=== PATIENT | male | born 1945 | race Caucasian/White ===

== ENCOUNTER → 2017-10-09 12:43 | Outpatient (CLI) | payer MEDICARE, SELFPAY ==
[2017-10-09 15:06] LABS: BUN 13 mg/dL (7-18); CREATININE 0.85 mg/dL (0.70-1.30)
== END ==
PROVIDERS: PCP Emergency Medicine; Visit Provider Neurological Surgery
DX: E78.00 Pure hypercholesterolemia, unspecified (principal); M79.606 Pain in leg, unspecified; M54.17 Radiculopathy, lumbosacral region; M54.9 Dorsalgia, unspecified
CPT/HCPCS: 84520; 82565

== ENCOUNTER → 2017-10-12 01:43 | Outpatient (CLI) | payer MEDICARE, SELFPAY ==
[2017-10-12] MEDS: Gadoterate meglumine 20 ML VIAL 15 ML IVP (15:39)
--- NOTE | 2017-10-12 15:50 | DI.REPORT_ITS ---
SYMPTOM/DIAGNOSIS: SEVERE LT SIDED L 5 SYMPTOMS, S/P L4-5 FUSION, M54.9, BACK PAIN, LEG PAIN, M79.606, RADICULOPATHY, M54.17,Z98.1 LUMBAR SPINE MRI: Pre and post contrast examination was performed according to protocol. Comparison examination is 05/23/17. Since the prior examination, the patient has undergone lumbar decompression with segmented instrumented fusion at L 4-5. There is artifact from the patient's orthopedic hardware noted. FINDINGS: The conus medullaris has a normal appearance and location. At L 5-S 1, there is disc desiccation, endplate degenerative osteophytes and endplate degenerative signal changes present. No significant central spinal canal stenosis is noted. There is bilateral moderate neural foraminal stenosis present. At L 4-5, there is disc desiccation, endplate osteophytes and endplate degenerative signal changes present. No significant central spinal canal stenosis is seen. There is again seen moderately severe right and moderate left neural foraminal stenosis. At L 3-4, there is disc desiccation, endplate degenerative signal changes and osteophytes present. There is a mild diffuse disc bulge. No significant central spinal canal stenosis is present. There is moderate right and moderately severe left neural foraminal stenosis present. At L 2-3, there is disc desiccation, endplate degenerative signal changes and osteophytes present. There does appear to be a diffuse disc bulge. There are hypertrophic changes of the facets and ligament flavum. Mild narrowing of the central spinal canal is noted. There is mild right and moderately severe left neural foraminal stenosis. At L 1-2, there is disc desiccation, endplate degenerative signal changes and osteophytes present. There is no significant narrowing of the central spinal canal. Moderate right and mild left neural foraminal stenosis is present. Following contrast administration, no significant enhancement is appreciated. IMPRESSION: 1. Interval post surgical changes in the lumbar spine with instrumented spinal fusion at L 4 and L 5. 2. Multi level degenerative changes throughout the lumbar spine resulting in multi level neural foraminal stenosis as described above.
== END ==
PROVIDERS: PCP Emergency Medicine; Visit Provider Neurological Surgery
DX: M54.17 Radiculopathy, lumbosacral region (principal); M79.606 Pain in leg, unspecified; M51.37 Other intervertebral disc degeneration, lumbosacral region; Z98.1 Arthrodesis status
CPT/HCPCS: 72158

== ENCOUNTER 2018-03-30 03:04 | Outpatient (CLI) | payer MEDICARE, SELFPAY ==
[2018-03-30 12:13] LABS: Cholesterol 211 mg/dL (50-200); HDL Cholesterol 70 mg/dL (40-60); LDL CHOLESTEROL 127 mg/dL (<100); TSH 1.52 uIU/mL (0.358-3.74); Triglyceride 37 mg/dL (30-150)
[2018-04-02 09:32] LABS: PSA, Screening <0.1 ng/ml (0-6.5)
== END 2018-03-30 03:24 ==
PROVIDERS: PCP Emergency Medicine; Visit Provider Emergency Medicine
DX: E78.5 Hyperlipidemia, unspecified (principal); E03.9 Hypothyroidism, unspecified; C61 Malignant neoplasm of prostate; Z12.5 Encounter for screening for malignant neoplasm of prostate
CPT/HCPCS: 36415; 80061; 83721; 84153; 84443

== ENCOUNTER → 2018-04-27 10:50 | Outpatient (BNVA) | payer MEDICARE, SELFPAY | PROVIDERS: PCP Emergency Medicine; Referring Provider Emergency Medicine; Visit Provider Physical Therapy Assistant | DX: Z12.11 Encounter for screening for malignant neoplasm of colon (principal); R19.7 Diarrhea, unspecified; B96.6 Bacteroides fragilis [B. fragilis] as the cause of diseases classified elsewhere ==

== ENCOUNTER 2018-04-30 10:05 | Outpatient (REF) | payer MEDICARE, SELFPAY ==
[2018-05-01 11:48] LABS: Campylobacter PCR SEE COMMENTS; Salmonella PCR SEE COMMENTS; Shiga Toxin PCR SEE COMMENTS; Shigella/Enteroinvasive Ecoli SEE COMMENTS
== END 2018-04-30 10:25 ==
LOC: LBN 10:05
PROVIDERS: PCP Emergency Medicine; Visit Provider Physical Therapy Assistant
DX: R19.7 Diarrhea, unspecified (principal)
CPT/HCPCS: 87329; 87505; 87177; 87324

== ENCOUNTER 2018-06-05 06:17 | Day surgery (SDC) | payer MEDICARE, SELFPAY ==
[2018-06-05 06:30] VITALS: BP 138/77; PULSE 69; RESP 18; TEMP 35.5; O2SAT 98
--- NOTE | 2018-06-05 06:46 | W.COLOREPORT ---
Date of service: 06/05/18 Time of Service: 07:24 Colonoscopy Report Date of procedure: 06/05/18 Pre-op diagnosis general: Colon Cancer screening Post-op diagnosis procedure note: other (colorectal polyps) Procedure: Colonoscopy with polypectomy by cold forceps Surgeon: Gisele Rosas Anesthesia proc note operative: other (General/ ASA 2 / Bernardo Rosa CRNA) Estimated blood loss (mL): 4 Pathology: other (Transverse colon polyp and descending colon polyp X2) Complications: None Disposition: same day Indications: Mr. Sanchez is a pleasant 72 year old male who was seen in the office for a screening colonoscopy. His last Colonoscopy was in 2007 and was normal. He has no family history of colon cancer. Risks, benefits and complications have been reviewed. Complications include but are not limited to bleeding, pain, perforation, missed small lesion/polyp, sore throat, aspiration and adverse reaction to the medications. Questions were entertained and answered to their satisfaction and they wished to proceed. No guarantees were given or implied. Prep: Miralax/Dulcolax Procedure Start Time: :24 Procedure End Time: :51 Retraction Time: Findings: 3 small sessile polyps Procedure Description: After informed consent was obtained the patient was taken to the procedure room and placed in a left decubitous position. Monitors were applied and a time out was done. The patients name, date of , procedure, allergies to medications and metal in their body was reviewed. The patient was then sedated. Once sedated and comfortable a rectal exam was done. External exam was normal. Internal exam revealed a slight relaxed sphincter tone and no palpable masses. The scope was then introduced and retro-flexed. No internal hemorrhoids were identified. There were no masses and no polyps. No radiation proctitis was noted. The scope was then advanced to the cecum without difficulty. The TI and appendiceal orifice were identified. The prep was adequate. The scope was then slowly retracted over 23 minutes back into the rectum. Polyps were removed with cold forceps x1 in the transverse colon and x 2 in the descending colon. The scope was removed and the patient was woken up and taken back to Same day surgery in stable condition. The patient tolerated the procedure well and there were no immediate complications. Follow up: The patient should follow up in 3,5 and 10 years depending on final pathology or unless they develop changes in bowel habits or other new gastrointestinal complaints.
--- NOTE | 2018-06-05 06:50 | PDOC.DSDIS_ITS ---
Discharge Plan Disposition Patient Disposition: HOME Condition: Good Discharge Details Reason For Visit: Colon Cancer Screening Attending Provider: Gisele Rosas Primary Care Provider: Rashid Metzger Home Meds and New Rx's Prescriptions: Continued Metamucil 3.4 gram/5.4 gram powder 1 tbs PO DAILY PRNRF: 0 loperamide [Imodium A-D] 2 mg capsule 2 mg PO Q1-4H PRNRF: 0 CENTRUM SILVER TABLET 1 EACH tablet 1 ea PO DAILY RF: 0 penis clamp 1 unit UR Qty: 1 RF: 0 aspirin [Aspir-Low] 81 MG tablet,delayed release (DR/EC) 81 mg PO DAILY RF: 0 pravastatin [Pravachol] 20 MG tablet 1 tab PO DAILY Qty: 90 RF: 4 sertraline [Zoloft] 100 mg tablet 150 mg PO DAILY Qty: 145 RF: 3 ibuprofen 200 mg capsule 400 mg PO DAILY 10 Days Qty: 60 RF: 0 Discontinued bisacodyl [Dulcolax (bisacodyl)] 5 mg tablet,delayed release (DR/EC) 5 mg PO ONCE Qty: 4 RF: 0 polyethylene glycol 3350 17 gram/dose powder 238 g PO ONCE Qty: 238 RF: 0 Discharge Instructions Instructions: Colonoscopy (DC), Colorectal Polyps (DC) Additional Instructions: Findings: 3 small polyps Follow up: depends on final pathology Please call if you develop: fevers >101.5 Nausea or Vomiting Abdominal pain that is not transient DAY SURGERY UNIT POST COLONOSCOPY INSTRUCTIONS 1. Because there will be medication in your system for the next 24 hours, you may feel a little sleepy. Your coordination will be affected. Therefore: a. Do not drive or operate dangerous equipment for 24 hours. b. Do not drink alcohol beverages for 24 hours (not even beer). c. Plan to go home and rest for the day. 2. Generally there are no restrictions on your activity after a day or so has gone by, but you may feel a bit fatigued for a few days. 3 After you arrive home you may have a light meal and return to a normal diet as you can tolerate it without feeling sick to your stomach. 4. After surgery, you may feel pain or discomfort. This should be only t ransient, but if it persists please contact your doctor. 5. If there are any questions regarding the findings of your procedure, please feel free to contact your doctor. 6. If you are unable to contact your doctor with a problem, contact the hospital at [phone]. 7. Continue all your regular medications unless directed otherwise. I understand the above instructions and have no questions. Signature of Patient or Responsible Adult Escort Date/Time Name of Responsible Adult Escort Signature of Nurse Date/Time Stand Alone Forms: Nazanin Alexandre (IKEU) Activity:: Activity as Tolerated Diet:: As Tolerated Discharge Orders Discharge Orders: Discharge Order (Routine); Ordered 06/05/18 Ordered By: Gisele Rosas DS: Diagnosis Discharge Diagnosis (1) S/P colonoscopy: Status: Acute (2) Colorectal polyp detected on colonoscopy: Status: Acute
--- NOTE | 2018-06-05 06:51 | W.PM.HP.N ---
Date of service: 06/05/18 Time of Service: 06:51 Assessment and Plan (1) Encounter for screening colonoscopy for [id number] patient: Current visit: Yes Status: Acute P\\ Colonoscopy under sedated Risks, benefits and complications have been reviewed. Complications include but are not limited to bleeding, pain, perforation, missed small lesion/polyp, sore throat, aspiration and adverse reaction to the medications. Questions were entertained and answered to their satisfaction and they wished to proceed. No guarantees were given or implied. History of Present Illness Narrative: 72 y/o male with history of prostatectomy and radiation for prostate cancer in 2012, depression and hyperlipidema presents for colonoscopy screening pre-op. His last screening was in 2007, which was unremarkable. He denies a family history of colon cancer. He reports changes in his bowel habits over the past year he has had multiple loose BMs (5+) a day, which at times has been associated with fecal incontinence. He reports feeling the urge to have BMs. He has been trying to use metamucil and immodium intermittently, with minimal change. Denies bloody or black tarry stools, abdominal pain or constipation. He denies constitutional symptoms. Denies use of marijuana or any other recreational or illegal drugs. He reports following a healthy diet, with fruits and vegetables with most meals. He denies chest pain, palpitations, dyspnea or dyspnea with exertion. He denies prior history or family history of adverse reactions or complications with anesthesia. 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 He was treated with a 10 day course of Metronidazole 500 mg TID. His diarrhea has resolved at this time. Review of Systems Constitutional Denies fever(s) and Denies weight loss Cardiovascular Denies chest pain, Denies palpitations and Denies dyspnea Respiratory Denies cough and Denies dyspnea Endocrine Denies palpitations [facility] Medical History Spinal stenosis (Acute) Sciatica (Acute) Primary malignant neoplasm of prostate (Acute) Hyperlipidemia (Acute) Depressive disorder (Acute) Hyperlipidemia (Chronic) Anxiety disorder (Chronic) History of incontinence of feces (Acute) History of urinary incontinence (Acute) DDD (degenerative disc disease), lumbar (Resolved) Sciatica, unspecified side (Resolved) Surgical History S/P colonoscopy (Acute ~06/05/18) Colonoscopy - MAC Prostatectomy Repair of inguinal hernia SPINE SURGERY Family History Mother Essential hypertension Heart disease Father Heart disease Hyperlipidemia Myocardial infarction Sister Cancer Brother Essential hypertension Heart disease Hyperlipidemia Prostate cancer Depression Maternal Grandfather Heart disease Cancer Paternal Grandfather Heart disease Maternal Grandmother Cancer Paternal Grandmother Stroke Daughter OCD (obsessive compulsive disorder) Daughter Skin cancer Social History Smoking/Tobacco Use Status: Never Second Hand Exposure: No Alcohol Intake: former Drug use: Never Substance use type: does not use Caregiver/Support person: No Household members: spouse and other Details: 2 Housing: house Pets and animals: No Sexually active: No Do you think of yourself as: straight/heterosexual Current gender identity: male What is your relationship status?: How often do you talk on the phone with friends or family?: three or more times per week How often do you get together with friends or relatives?: three or more times per week How often do you attend buddhist or muslim services?: 4 or more times per year Do you belong to any clubs or organized social groups?: no Panel score (0-1 are the most socially isolated patients): 3 What type of physical activity do you participate in: none Duration: 15-30 minutes/day Frequency: 3-4 times per week Chrystal/Hindu: Jehovah'S Witness Special chrystal needs: No Do you feel safe at home: Yes Do you feel safe in your relationship?: Yes Meds Home Medications Medication Instructions Recorded Confirmed Type Centrum Silver Tablet 1 ea PO DAILY 08/09/12 06/05/18 History Penis Clamp 1 unit UR #1 u 11/06/13 04/27/18 Clinic aspirin [Aspir-Low] 81 mg PO DAILY tab-cap 03/24/15 06/05/18 History pravastatin [Pravachol] 1 tab PO DAILY #90 tab 10/11/17 06/05/18 Rx sertraline 100 mg tablet 150 mg PO DAILY #145 tab-cap 01/12/18 06/05/18 Rx bisacodyl 5 mg tablet,delayed 5 mg PO ONCE #4 tab 04/27/18 06/05/18 Rx release ibuprofen 200 mg capsule 400 mg PO DAILY 10 Days #60 cap 04/27/18 06/05/18 History loperamide 2 mg capsule 2 mg PO Q1-4H PRN 04/27/18 06/05/18 History polyethylene glycol 3350 17 238 g PO ONCE #238 gm 04/27/18 06/05/18 Rx gram/dose oral powder psyllium husk 3.4 gram/5.4 gram 1 tbs PO DAILY PRN 04/27/18 06/05/18 History oral powder Allergies Allergy/AdvReac Type Severity Reaction Status Date / Time latex Allergy Intermediate rash on Verified 06/05/18 06:39 hands sildenafil AdvReac Severe HEADACHE Verified 06/05/18 06:39 atorvastatin AdvReac Unknown MYALGIAS Verified 06/05/18 06:39 Exam HENMT Head: normocephalic and atraumatic Resp Effort & Inspection: normal respiratory effort Auscultation: clear to auscultation bilaterally Cardio Rate: regular rate Rhythm: regular rhythm Heart Sounds: no gallops, no murmurs and no rubs Results Last Vital Signs Temp 95.9 F L 06/05/18 06:30 Pulse 69 06/05/18 06:30 Resp 18 06/05/18 06:30 BP 138/77 06/05/18 06:30 Pulse Ox 98 06/05/18 06:30
[2018-06-05] MEDS: Lactated Ringers 1,000 ML 80 ML IV (06:56)
--- NOTE | 2018-06-05 07:37 | BOWEL_PTH ---
PATIENT: Basil Sanchez LOC: [facility] U#:[id number] AGE/SX: 72/M ROOM: RE06/05/[address]: Gisele Rosas MD : 1945 BED: DIS: 06/05/2018 SPEC #: [id number] RECD: 06/05/18 12:13 STATUS: EHSAN REQ #: [id number] SHAHAB: 06/05/18 07:[address]: Gisele Rosas DEPT: Surgical Specimen RECD BY: Carlie Zamorano ENTERED: 06/05/18 12:13 SP TYPE: Bowel OTHR DR: Rashid Metzger DO Tissues: 1 - BIOPSY BOWEL 2 - BIOPSY BOWEL Procedures: GROSS AND MICRO LEVEL 4 Comments: [id number]
[2018-06-05 08:45] VITALS: BP 126/75; PULSE 51; RESP 16; TEMP 35.8; O2SAT 99
== END 2018-06-05 09:06 | disposition home or self-care (01) ==
PROVIDERS: PCP Emergency Medicine; Visit Provider Surgery
PROC: 0DJD8ZZ Inspection of Lower Intestinal Tract, Via Natural or Artificial Opening Endoscopic (ICD-10-PCS; CPT 45378; principal; 2018-06-05 07:30)
DX: Z12.11 Encounter for screening for malignant neoplasm of colon (principal); D12.3 Benign neoplasm of transverse colon; K63.5 Polyp of colon; Z85.46 Personal history of malignant neoplasm of prostate
CPT/HCPCS: 45380; 88305; NC

== ENCOUNTER 2018-10-02 14:59 | Outpatient (REF) | payer MEDICARE, SELFPAY | END 2018-10-02 15:19 | LOC: LBN 14:59 | PROVIDERS: PCP Emergency Medicine; Visit Provider Internal Medicine Gastroenterology | DX: R15.1 Fecal smearing (principal); K52.89 Other specified noninfective gastroenteritis and colitis | CPT/HCPCS: 87329; 82710; 83630; 87177; 87324 ==

== ENCOUNTER 2018-10-03 10:17 | Outpatient (REF) | payer MEDICARE, SELFPAY | END 2018-10-03 10:37 | LOC: LBN 10:17 | PROVIDERS: PCP Emergency Medicine; Visit Provider Emergency Medicine | DX: R15.1 Fecal smearing (principal); K52.9 Noninfective gastroenteritis and colitis, unspecified | CPT/HCPCS: 87329; 87177 ==

== ENCOUNTER 2018-10-04 08:26 | Outpatient (REF) | payer MEDICARE, SELFPAY | END 2018-10-04 08:46 | LOC: LBN 08:26 | PROVIDERS: PCP Emergency Medicine; Visit Provider Emergency Medicine | DX: R15.1 Fecal smearing (principal); K52.9 Noninfective gastroenteritis and colitis, unspecified | CPT/HCPCS: 87177 ==

== ENCOUNTER 2019-04-08 01:43 | Outpatient (CLI) | payer MEDICARE, SELFPAY ==
[2019-04-08 07:28] LABS: Abs Immature Grans 0.01 k/cumm (0.0-0.09); Absolute Basophil Count 0.04 k/cumm (0.0-0.2); Absolute Eosinophil Count 0.14 k/cumm (0.0-0.7); Absolute Lymphocyte Count 1.22 k/cumm (1.2-3.4); Absolute Monocyte Count 0.39 k/cumm (0.11-0.7); Absolute Neutrophil Count 3.15 k/cumm (1.2-6.7); Basophils % 0.8; Eosinophils % 2.8; HCT 44.6 % (40.0-50.0); Immature Grans % 0.2 %; Lymphocytes % 24.6; Mean Corp. HGB Concentration 33.6 g/dL (32.0-36.0); Mean Corpuscular Hemoglobin 30.2 pg (27.0-33.0); Mean Corpuscular Volume 89.7 fL (80-95); Mean Platelet Volume 9.7 fL (8.0-11.0); Monocytes % 7.9; Neutrophils % 63.7; Platelet Count 212 x1000/uL (130-400); RBC 4.97 m/cumm (4.50-6.00); RBC Distribution Width 12.9 % (11.8-14.1); White Blood Cell Count 4.95 k/cumm (4.4-10.8)
[2019-04-08 09:05] LABS: ALT 25 U/L (16-63); AST 22 U/L (15-37); Albumin 4.1 g/dL (3.4-5.0); Alkaline Phosphatase 119 U/L (46-116); Anion Gap 6.2 mmol/L (3-11); BUN 12 mg/dL (7-18); Bilirubin, Total 0.6 mg/dL (0.2-1.0); CO2 29.8 mmol/L (21.0-32.0); CREATININE 0.91 mg/dL (0.70-1.30); Calcium 8.9 mg/dL (8.5-10.1); Chloride 108 mmol/L (98-107); Glucose 99 mg/dL (74-106); Potassium 4.4 mmol/L (3.5-5.1); Sodium 144 mmol/L (136-145); Total Protein 6.7 g/dL (6.4-8.2)
[2019-04-09 17:43] LABS: PSA, Diagnostic <0.1 ng/mL (0.0-6.5)
== END 2019-04-08 02:03 ==
PROVIDERS: PCP Family Medicine; Visit Provider Family Medicine
DX: D64.9 Anemia, unspecified (principal); C61 Malignant neoplasm of prostate; R25.1 Tremor, unspecified
CPT/HCPCS: 36415; 80053; 84153; 85025

== ENCOUNTER 2019-04-18 11:57 | Outpatient (CLI) | payer MEDICARE, SELFPAY ==
[2019-04-18 14:34] LABS: Bilirubin Negative (Negative); Blood Moderate (Negative); Clarity Clear (Clear); Glucose Negative (Negative); Ketones Negative (Negative); Leukocyte Esterase Small (Negative); Nitrite Negative (Negative); Specific Gravity >= 1.030 (1.005-1.025); Urobilinogen 0.2 EU/dL (Up TO 0.2)
[2019-04-18 15:50] LABS: RBC 0-2 HPF (0-2); WBC >50 HPF (0-5)
[2019-04-18 15:51] LABS: Bacteria Few HPF (Negative); Epithelial Cells Few HPF (Negative)
[2019-04-18 15:52] LABS: C & S Indicated? Yes
== END 2019-04-18 12:17 ==
PROVIDERS: PCP Family Medicine; Visit Provider Family Medicine
DX: R31.9 Hematuria, unspecified (principal)
CPT/HCPCS: 36415; 87077; 81003; 81015; 87086; 87186

== ENCOUNTER 2019-04-25 01:28 | Outpatient (CLI) | payer MEDICARE, SELFPAY ==
--- NOTE | 2019-04-25 07:46 | DI.CT_ITS ---
EXAM: CT HEAD WO CLINICAL HISTORY: lightheaded with some headaches,R42. TECHNIQUE: Imaging Protocol: Axial computed tomography images with coronal and sagittal reformatted images were created and reviewed COMPARISON: No exams were available for comparison FINDINGS: Ventricles and Extra axial spaces: Normal in size and morphology for the patient's age. Hemorrhage: None. Cerebral parenchyma: Normal. Midline shift: None. Brainstem/Cerebellum: Normal. Calvarium: Normal. Visualized Paranasal sinuses/Mastoids: Clear. Soft Tisues: Unremarkable. IMPRESSION: Normal CT of the head. RADIATION DOSE DELIVERED: DATA REPOSITORY: All CT scans at this facility are submitted to the National Radiology Data Registry (NRDR) Dose Index Registry (DIR) with the [employer] (ACR). RADIATION OPTIMIZATION: All CT scans at this facility use at least one of these dose optimization te chniques: automated exposure control; mA and/or kV adjustment per patient size (includes targeted exa ms where dose is matched to clinical indication); or iterative reconstruction.
== END 2019-04-25 01:48 ==
PROVIDERS: PCP Family Medicine; Visit Provider Family Medicine
DX: R42 Dizziness and giddiness (principal); R51 Headache
CPT/HCPCS: 70450

== ENCOUNTER 2019-04-26 11:05 | Outpatient (CLI) | payer MEDICARE, SELFPAY ==
[2019-04-26 12:39] LABS: Abs Immature Grans 0.01 k/cumm (0.0-0.09); Absolute Basophil Count 0.06 k/cumm (0.0-0.2); Absolute Eosinophil Count 0.13 k/cumm (0.0-0.7); Absolute Lymphocyte Count 1.21 k/cumm (1.2-3.4); Absolute Monocyte Count 0.46 k/cumm (0.11-0.7); Absolute Neutrophil Count 3.67 k/cumm (1.2-6.7); Basophils % 1.1; Eosinophils % 2.3; HCT 44.2 % (40.0-50.0); HGB 14.8 g/dL (13.5-17.5); Immature Grans % 0.2 %; Lymphocytes % 21.8; Mean Corp. HGB Concentration 33.5 g/dL (32.0-36.0); Mean Corpuscular Hemoglobin 29.9 pg (27.0-33.0); Mean Corpuscular Volume 89.3 fL (80-95); Mean Platelet Volume 10.3 fL (8.0-11.0); Monocytes % 8.3; Neutrophils % 66.3; Platelet Count 245 x1000/uL (130-400); RBC 4.95 m/cumm (4.50-6.00); RBC Distribution Width 12.9 % (11.8-14.1); White Blood Cell Count 5.54 k/cumm (4.4-10.8)
[2019-04-26 12:57] LABS: ALT 29 U/L (16-63); AST 23 U/L (15-37); Albumin 4.1 g/dL (3.4-5.0); Alkaline Phosphatase 124 U/L (46-116); Anion Gap 9.1 mmol/L (3-11); BUN 19 mg/dL (7-18); Bilirubin, Total 0.6 mg/dL (0.2-1.0); CO2 26.9 mmol/L (21.0-32.0); CREATININE 1.06 mg/dL (0.70-1.30); Chloride 104 mmol/L (98-107); Glucose 104 mg/dL (74-106); Potassium 4.5 mmol/L (3.5-5.1); Sodium 140 mmol/L (136-145); Total Protein 7.1 g/dL (6.4-8.2)
[2019-04-27 14:25] LABS: C-Reactive Protein 0.12 mg/dL (0.0-0.3)
== END 2019-04-26 11:25 ==
PROVIDERS: PCP Family Medicine; Visit Provider Family Medicine
DX: E03.9 Hypothyroidism, unspecified (principal); D64.9 Anemia, unspecified; R42 Dizziness and giddiness
CPT/HCPCS: 36415; 80053; 84443; 85025; 86140

== ENCOUNTER 2019-04-26 11:38 | Outpatient (CLI) | payer MEDICARE, SELFPAY ==
--- NOTE | 2019-04-26 13:21 | DI.CT_ITS ---
EXAM: CT RENAL COLIC WO CLINICAL HISTORY: left low back pain, ? KIDNEY STONE, M54.9. TECHNIQUE: Imaging Protocol: Axial computed tomography images with coronal and sagittal reformatted images were created and reviewed. COMPARISON: No exams were available for comparison FINDINGS: ABDOMEN: Lung Bases: Normal where visualized. Liver: Normal density. No measurable mass. Multiple hepatic cysts. The largest measures 6.4 cm. Gallbladder and biliary tract: No radiodense calculus or dilation. Pancreas: Normal density, no abnormal calcifications or inflammatory process. Spleen: Normal. Kidneys: Normal size, contour and axis. Nonobstructing left renal stone. No ureterolithiasis. No hy dronephrosis. Right renal cysts. Adrenal glands: No masses seen. Lymph nodes: Within normal limits. Abdominal Aorta: Abdominal portion non-dilated. Atherosclerosis. PELVIS: Bladder: Symmetric distention, no gross wall thickening. Bowel: No obstruction or bowel wall thickening. Diverticulosis but no evidence of acute diverticuliti s. No evidence of an acute appendicitis. Peritoneal cavity: No ascites, collection or mesenteric inflammatory response. Reproductive organs: Prostate gland not visualized. Please correlate with patient's surgical history . Bones: Degenerative changes in the lumbar spine. Postsurgical laminectomies in the lower lumbar spin e. IMPRESSION: 1. Left nephrolithiasis. 2. No evidence of obstructive uropathy. 3. Hepatic and renal cysts. 4. No evidence of an acute abdominal or pelvic process. DATA REPOSITORY: All CT scans at this facility are submitted to the National Radiology Data Registry (NRDR) Dose Index Registry (DIR) with the [employer] (ACR). RADIATION OPTIMIZATION: All CT scans at this facility use at least one of these dose optimization te chniques: automated exposure control; mA and/or kV adjustment per patient size (includes targeted exa ms where dose is matched to clinical indication); or iterative reconstruction.
== END 2019-04-26 11:58 ==
PROVIDERS: PCP Family Medicine; Visit Provider Family Medicine
DX: M54.5 Low back pain (principal); N20.0 Calculus of kidney; K76.89 Other specified diseases of liver; N28.1 Cyst of kidney, acquired; E03.9 Hypothyroidism, unspecified; R42 Dizziness and giddiness; D64.9 Anemia, unspecified
CPT/HCPCS: 36415; 80053; 74176; 84443; 85025; 86140

== ENCOUNTER 2019-05-01 02:48 | Outpatient (CLI) | payer MEDICARE, SELFPAY ==
[2019-05-01 12:45] LABS: Vitamin B12 569 pg/mL (193-986)
== END 2019-05-01 03:08 ==
PROVIDERS: PCP Family Medicine; Visit Provider Family Medicine
DX: F48.8 Other specified nonpsychotic mental disorders (principal)
CPT/HCPCS: 36415; 82607

== ENCOUNTER 2019-08-09 15:00 | Outpatient (CLI) | payer MEDICARE, SELFPAY ==
--- NOTE | 2019-08-09 12:30 | DI.RAD_ITS ---
EXAM: XR LUMBAR SPINE COMPLETE CLINICAL HISTORY: low back pain,m54.9,dorsalgia TECHNIQUE: COMPARISON: No exams were available for comparison FINDINGS: Five views were obtained. There are Ga rods in place at the L4-5 level on the right and fro m L4-S1 on the left. There is a mild biconvex thoracolumbar scoliosis. Ga rods appear intac t. There is multilevel disc space loss of height consistent with disc degeneration throughout the lynn mbar region. There are very prominent hypertrophic endplate and facet degenerative changes. There i s no gross spondylolysis or spondylolisthesis. IMPRESSION: Severe DJD, Ga rods in place from L4-S1, no evidence of fracture.
== END 2019-08-09 15:20 ==
PROVIDERS: PCP Family Medicine; Visit Provider Family Medicine
DX: M54.5 Low back pain (principal); M51.37 Other intervertebral disc degeneration, lumbosacral region; M41.35 Thoracogenic scoliosis, thoracolumbar region
CPT/HCPCS: 72110

== ENCOUNTER 2019-08-15 01:06 | Outpatient (CLI) | payer MEDICARE, SELFPAY ==
--- NOTE | 2019-08-15 07:00 | DI.MRI_ITS ---
EXAM: MR LUMBAR SPINE WO/W CLINICAL HISTORY: BACK PAIN, M54.5, Z98.890 POST PROCEDURAL STATE. TECHNIQUE: Multiplanar multisequence MRI of the Lumbar Spine was performed. CONTRAST MATERIAL: IV Contrast: 15 mL of Dotarem contrast administered. COMPARISON: MR MRI - LUMBAR SPINE W/WO CONT from 10/12/2017 FINDINGS: Bones: The last intervertebral disc space is designated the L5/S1 level for the numbering purpose of this examination. The vertebral body heights are well maintained. Mild scoliosis. The signal charac teristics are unremarkable. Posterior spinal surgery is seen from L4 through S1. Cord: The conus tip ends at the L1 level. It is of normal size and signal intensity. T12-L1: No disc herniations or bulges are present. No central spinal canal or neural foraminal stenos is. L1-2: There is diffuse disc bulge. Mild narrowing of the central spinal canal is noted. Moderate righ t and mild left neural foraminal stenosis is present. L2-3: There is a diffuse disc bulge. Mild central spinal canal stenosis is noted. Mild right and mode rately severe left neural foraminal stenosis is present.Endplate degenerative signal changes are note d. L3-4: There is a mild diffuse disc bulge. No central spinal canal stenosis is present. Moderate right and moderately severe left neural foraminal stenosis is present.Endplate degenerative signal changes are noted. L4-5: No disc herniations or bulges are present. No central spinal canal stenosis is present. Moderat e bilateral neural foraminal stenosis is present.Endplate degenerative signal changes are noted. L5-S1: There is a mild diffuse disc bulge. No central spinal canal stenosis is present. There is bi lateral moderate neural foraminal stenosis.Degenerative endplate signal changes are present as Soft tissues: The visualized SI joints and sacrum are well maintained. The paraspinal soft tissues ar e unremarkable. There is no evidence of suspicious enhancement. IMPRESSION: Multilevel degenerative changes in the lumbar spine resulting in central spinal canal and neural fora tiffanie stenosis as described above. DATA REPOSITORY:
[2019-08-15] MEDS: Normal Saline Flush 10 ML SYR IVP (09:25)
[2019-08-15] MEDS: Gadoterate meglumine 20 ML VIAL 15 ML IVP (09:26)
== END 2019-08-15 01:26 ==
PROVIDERS: PCP Family Medicine; Visit Provider Family Medicine
DX: M54.5 Low back pain (principal); Z98.890 Other specified postprocedural states; M51.37 Other intervertebral disc degeneration, lumbosacral region
CPT/HCPCS: 72158

== ENCOUNTER 2020-06-17 21:43 | Outpatient (REF) | payer MEDICARE, SELFPAY ==
[2020-06-17 22:14] LABS: Calculated LDL 116 mg/dL (<100); Cholesterol 202 mg/dL (<200); HDL Cholesterol 64 mg/dL (40-60); Triglyceride 110 mg/dL (<150)
[2020-06-18 17:24] LABS: PSA, Diagnostic <0.1 ng/mL (0.0-6.5)
== END 2020-06-17 21:44 | disposition home or self-care (01) ==
LOC: NCHCN 21:43
PROVIDERS: PCP Family Medicine; Visit Provider Family Medicine
DX: E78.5 Hyperlipidemia, unspecified (principal); C61 Malignant neoplasm of prostate
CPT/HCPCS: 80061; 84153

== ENCOUNTER 2020-12-07 01:02 | Outpatient (CLI) | payer MEDICARE, SELFPAY ==
[2020-12-07 12:24] LABS: Abs Immature Grans 0.02 10^3/uL (0.0-0.06); Absolute Basophil Count 0.05 10^3/uL (0.0-0.2); Absolute Eosinophil Count 0.15 10^3/uL (0.0-0.7); Absolute Lymphocyte Count 1.14 10^3/uL (1.2-3.4); Absolute Monocyte Count 0.44 10^3/uL (0.1-0.8); Absolute Neutrophil Count 3.22 10^3/uL (1.2-6.7); HCT 46.1 % (40.0-50.0); HGB 14.6 g/dL (13.5-17.5); Immature Grans % 0.4; Lymphocytes % 22.7; MCH 29.6 pg (27.0-33.0); MCHC 31.7 % (32.0-36.0); MCV 93.5 fL (80-95); MPV 10.5 fL (8.0-11.0); Monocytes % 8.8; Neutrophils % 64.1; Nucleated RBC 0 %; Platelet Count 211 10^3/uL (130-400); RBC 4.93 10^6/uL (4.36-5.78); RDW 12.2 % (11.8-14.1); RDW-SD 41.9 fL; WBC 5.02 10^3/uL (4.4-10.8)
[2020-12-07 12:47] LABS: ALT 22 U/L (16-63); AST 17 U/L (15-37); Alkaline Phosphatase 108 U/L (46-116); Anion Gap 6.4 mmol/L (3-11); BUN 16 mg/dL (7-18); Bilirubin, Total 0.8 mg/dL (0.2-1.0); CO2 32.6 mmol/L (21.0-32.0); CREATININE 0.9 mg/dL (0.70-1.30); Chloride 106 mmol/L (98-107); Glucose 94 mg/dL (74-106); Potassium 4.2 mmol/L (3.5-5.1); Sodium 145 mmol/L (136-145); Total Protein 6.6 g/dL (6.4-8.2)
== END 2020-12-07 01:03 | disposition home or self-care (01) ==
LOC: LOS 01:02
PROVIDERS: PCP Family Medicine; Visit Provider Family Medicine
DX: R63.4 Abnormal weight loss (principal); R10.9 Unspecified abdominal pain
CPT/HCPCS: 36415; 80053; 85025

== ENCOUNTER 2021-07-06 02:46 | Outpatient (CLI) | payer MEDICARE, SELFPAY ==
[2021-07-06 22:49] LABS: PSA, Diagnostic <0.1 ng/mL (<=6.5)
== END 2021-07-06 02:47 | disposition home or self-care (01) ==
LOC: LOS 02:46
PROVIDERS: PCP Family Medicine; Visit Provider Family Medicine
DX: C61 Malignant neoplasm of prostate (principal)
CPT/HCPCS: 36415; 84153

== ENCOUNTER 2022-06-29 03:04 | Outpatient (CLI) | payer MEDICARE, SELFPAY ==
[2022-06-29 22:49] LABS: PSA, Diagnostic <0.1 ng/mL (<=6.5)
== END 2022-06-29 03:05 | disposition home or self-care (01) ==
LOC: LOS 03:04
PROVIDERS: PCP Family Medicine; Visit Provider Family Medicine
DX: C61 Malignant neoplasm of prostate (principal)
CPT/HCPCS: 36415; 84153

== ENCOUNTER 2022-08-25 00:52 | Outpatient (CLI) | payer MEDICARE, SELFPAY ==
--- NOTE | 2022-08-25 07:15 | DI.NM_ITS ---
APPROVED REPORT Exam: Exercise Treadmill Patient Location: Out-Patient Room/Bed: Stress Nurse: Yvette Katz RN Ordering Provider:ALBERT YEUNG, Contact Number: [phone] BMI: 26.46 Baseline Rhythm: Sinus Rhythm Comment: PAC's Indications: Chest pain Medical History Medical History: Anxiety disorder, depressive disorder, HLD, Sciatica, spinal stenosis, primary malig nant neopplasm of prostate, pyelonephritis, brain fog, dizziness Cardiac Medications: Venlafaxine, sertraline, pravastatin, ibuprofen, Vit D3, baby aspirin Allergies: Latex, atorvastatin, sildenafil Cardiac Risk Factors: Family hx, HLD Previous Cardiac Procedures: None Pretest Chest Pain Characteristics: None Exercise History: Indeterminate Physical Disabilities: None Lung Sounds: Clear to auscultation Heart Sounds: Regular Stress Test Details Test: Exercise stress testing was performed using a August protocol. Nuclear Acquisition: Rest Tc-99m/Stress Tc-99m 1 day Rest Isotope: Tc-99m Sestamibi. Dose: 10.0 Date: 08/25/2022 Injection Time: 0830 Stress Isotope: Tc-99m Sestamibi. Dose: 31.0 Date: 08/25/2022 Injection Time: 1023 HR Resting HR Supine: 64 bpm Max Heart Rate (APMHR): 143.002402 bpm Resting HR Standin bpm Target HR (85% APMHR): 121.207639 bpm Max HR Achieved: 126 bpm % of APMHR: 88.11 Recovery HR: 71 bpm HR response to stress: Normal HR response to stress BP Resting BP Supine: 122/80 mmHg Resting BP Standin/78 mmHg Max BP: 154/72 mmHg Recovery BP: 140/78 mmHg BP response to stress: Normal blood pressure response to stress. ECG Resting ECG: Sinus Rhythm Ectopy: rare PAC Stress ECG: Sinus Tachycardia ST Change: No significant ST segment changes noted, Downsloping ST depression Lead(s): II, III, AVF Stage: 1, 2, [address] Deviation: 3-4 mm Recovery ECG: Sinus Rhythm Recovery ST Change: Horizontal ST depression, Downsloping ST depression, Upsloping ST depression Lead(s): II, II, AVF Recovery Arrhythmia: Occasional multifocal PVC's Comment: Diffuse T waves changes, unable to assess ST deviation Clinical Reason for Termination: Target HR Achieved, Fatigue, Dyspnea Stress Symptoms: General Fatigue, Dyspnea Exercise duration: 06 min59 sec Highest Stage Reached: Stage 3: 3.4 mph at 14% grade. Exercise capacity: 8.57 METs Angina Score: None Car Treadmill Score: -5.0 Rate Pressure Product: 22650 Stress ECG Conclusion 1. Resting electrocardiogram was within normal limits 2. Patient exercised on the August protocol completed workload of 8.57 METS 3. Normal heart rate and blood pressure response to exercise. Patient achieved 88% of predicted hear t rate for age 4. At peak exercise there was J-point depression and upsloping ST segments in the inferior and razia lateral leads. In recovery there was diffuse downsloping ST T abnormalities 5. See MPI report Car Treadmill Score is -5.0 which is Moderate risk. Stress Test Summary STAGE Time (mins) Speed (mph) Grade (%) HR BP SpO2 SYMPTOMS METS Supine 64 122/80 Standing 66 126/78 97 1 3 1.7 10 103 134/82 4.5 2 6 2.5 12 105 7 3 9 3.4 14 125 Mod dyspnea, fatigue 10 1 min recovery 98 154/72 98 Mild dyspnea 3 min recovery 82 150/76 98 Dyspnea resolving 6 min recovery 71 140/70 98 All symptoms resolved. MPI Conclusion Myocardial perfusion is normal. There is no ischemia or evidence of prior infarction EF is 47%. Wall motion is normal Radiologist Interpretation Radiologist agrees with Work Ticket Distributor's Interpretation. Radiologist Interpretation by: Celestino Kent MD Interpretation Date/Time: 08/26/2022 15:26:53
== END 2022-08-25 01:12 ==
LOC: DI 00:52
PROVIDERS: PCP Family Medicine; Visit Provider Family Medicine
DX: R07.9 Chest pain, unspecified (principal)
CPT/HCPCS: 78452; 93016; 93018; 93017